=== PATIENT | female | born 1950 | race African-American/Black ===

== ENCOUNTER → 2018-04-14 | Outpatient (CLI) | payer MEDICARE ==
[~2018-04-14] MED LIST: AMLODIPINE BESYL5 M1 PO; ASPIRIN325 PO; BAYER CHEWABLE81 MG PO; BENADRYL25 MG PO; COLACE100 MG PO; COZAAR 50 MG TA50 M2 PO; FEVERALL650 MG RECTAL; HYDROCHLOROTH12.5 MG PO; KEFLEX250 M1 PO; LIPITOR 20 MG T20 M1 PO; LOSARTAN POTAS100 MG PO; METAMUCIL1 EAC1 PO; MIRALAX17 GM PO; MOM PO; NITROGLYCERIN0.4 MG SL; NORVASC5 MG PO; ONDANSETRON HCL4 M2 PO; OXYCODONE HCL 55 MG PO; TYLENOL325 MG PO; XARELTO10 MG PO; ZOCOR40 MG PO
== END ==
LOC: M.NUC 04-13 09:56
DX: M25.562 Pain in left knee (principal); Z96.652 Presence of left artificial knee joint

== ENCOUNTER → 2020-06-08 | Outpatient (CLI) | payer MEDICARE | LOC: M.ULTRA 12:45 | PROVIDERS: ATTEND Orthopaedic Surgery | DX: M25.462 Effusion, left knee (principal); M79.662 Pain in left lower leg; Z96.652 Presence of left artificial knee joint ==